=== PATIENT | female | born 1995 | race Caucasian/White ===

== ENCOUNTER 2017-02-04 18:42 | Outpatient (CLI) | payer OTHER ==
[2017-02-04] MEDS ORDERED: LACTATED RINGER'S 500 ML IV ONE (20:30)
[2017-02-04] MEDS ORDERED: NIFEdipine 10 MG CAP PO ONE (20:30)
[2017-02-04 23:08] LABS: ADD UMIC YES; UR ASCORBIC ACID NEGATIVE (NEGATIVE); UR BACTERIA FEW /HPF (NONE SEEN); UR BILIRUBIN (Dip) NEGATIVE (NEGATIVE); UR BLOOD (Dip) 1+ mg/dL (NEGATIVE); UR CLARITY CLEAR (CLEAR); UR COLOR COLORLESS (YELLOW); UR GLUCOSE (Dip) NEGATIVE (NEGATIVE); UR KETONES (Dip) NEGATIVE (NEGATIVE); UR LEUKOCYTE ESTERASE (Dip) 3+ Leu/ul (NEGATIVE); UR NITRITE (Dip) NEGATIVE (NEGATIVE); UR RBC 0 /HPF (0-5); UR SPECIFIC GRAVITY (Dip) 1.002 (1.003-1.030); UR TOTAL PROTEIN (Dip) NEGATIVE (NEGATIVE); UR UROBILINOGEN (Dip) NEGATIVE (NEGATIVE)
--- NOTE | 2017-02-04 23:24 | QN ---
Documentation Comment iup 33+ pt co of ucx vss exam wnl us cl.3.5 a/p iup 33+ false labor dc home MAGALI ASENCIO MD Feb 04, 2017 23:23
[2017-02-04] MEDS ORDERED: NITR-58 PO (23:40)
--- NOTE | 2017-02-05 00:05 | TRIAGE ---
OB Triage Datetime Report Generated by CPN: 02/05/2017 00:04 Datetime: 02/04/2017 23:20 Stage of : OB Triage Monitor Mode: External Pattern: Normal: <= 5 Contractions in 10 Minutes Resting Tone Amber: Relaxed Heart Rate FHR Baseline Rate: 140 Monitor Mode: External US Variability: Moderate 6-25 bpm Accelerations: 15X15 Decelerations: None Category: Category I Pain Assessment Pain Scale: 0 Pain Presence: None/Denies Pain Type: N/A Pain Relief Measures: Comfort Measures Datetime: 02/04/2017 22:15 Stage of : OB Triage Labor Evaluation Frequency: occasional Monitor Mode: External Duration (sec)2399: 40 Pattern: Normal: <= 5 Contractions in 10 Minutes Resting Tone Amber: Relaxed Contraction Comments: uterine irritability noted Heart Rate FHR Baseline Rate: 140 Monitor Mode: External US Variability: Moderate 6-25 bpm Accelerations: 15X15 Decelerations: None Category: Category I Pain Assessment Pain Scale: 0 Pain Presence: None/Denies Pain Type: N/A Pain Relief Measures: Comfort Measures Datetime: 02/04/2017 21:15 Stage of : OB Triage Labor Evaluation Frequency: Irregular Monitor Mode: External Duration (sec)2399: 40-60 Pattern: Normal: <= 5 Contractions in 10 Minutes Resting Tone Amber: Relaxed Heart Rate FHR Baseline Rate: 130 Monitor Mode: External US Variability: Moderate 6-25 bpm Accelerations: 15X15 Decelerations: None Category: Category I Pain Assessment Pain Scale: 0 Pain Presence: None/Denies Pain Type: N/A Pain Relief Measures: Comfort Measures Datetime: 02/04/2017 21:13 Stage of : OB Triage Datetime: 02/04/2017 20:25 Stage of : OB Triage Labor Evaluation Frequency: 1-2 Monitor Mode: External Duration (sec)2399: 40-70 Pattern: Normal: <= 5 Contractions in 10 Minutes Resting Tone Amber: Relaxed Heart Rate FHR Baseline Rate: 130 Monitor Mode: External US Variability: Moderate 6-25 bpm Accelerations: 15X15 Decelerations: None Category: Category I Pain Assessment Pain Scale: 0 Pain Presence: None/Denies Pain Type: N/A Pain Relief Measures: Comfort Measures Datetime: 02/04/2017 20:00 Stage of : OB Triage Datetime: 02/04/2017 19:23 Stage of : OB Triage Assessment Type: Triage Maternal Assessment Level of Consciousness: Fully Conscious DTR's/Clonus: DTRs 2+; No Clonus Headache: Denies Blurred Vision: No Respiratory Effort: Unlabored; Regular Rhythm; Equal Expansion Breath Sounds, Left: Clear and Equal Breath Sounds, Right: Clear and Equal Nausea/Vomiting: Denies RUQ Epigastric Pain: Denies Lower Extremities Edema: None Degree: None Upper Extremities Edema: None Degree: None Facial Edema: None Temperature Route: Oral Fall Risk Assessment History of Falling: (0) No Secondary Diagnosis: (0) No Ambulatory Aid: (0) Bedrest/Nurse Assist IV Therapy: (0) No Gait: (0) Normal/Bedrest/Immobile Mental Status: (0) Oriented to Own Ability Fall Score: 0 Fall Risk Score Definition: No Risk: No action required Pain Assessment Pain Scale: 0 Pain Presence: None/Denies Pain Type: N/A Pain Goal: 0 Pain Relief Measures: Comfort Measures Datetime: 02/04/2017 19:22 EGA: 33.4 Datetime: 02/04/2017 19:20 Time of Arrival: 02/04/2017 18:38 Arrived By: Wheelchair Arrived From: Home Movement: Present Contractions: Denies/Absent Rupture of Membranes: Denies Vaginal Bleeding: None Vaginal Discharge: Denies Recent Sexual Intercouse: Denies Abdominal Trauma: Not Applicable Patient Complaints: Shortness of Breath; Other Additional Patient Complaints: Abdominal pressure. Time Provider Notified: 02/04/2017 20:00 Provider Notified: Initial Plan: JONI MARTINEZ
--- NOTE | 2017-02-05 00:06 | RADRPT ---
PROCEDURE: Limited OB ultrasound CLINICAL INDICATION: Pelvic pressure. TECHNIQUE: Sonographic evaluation to assess the cervical length was performed. Transabdominal and transvaginal imaging of the uterus was performed. COMPARISON: None. FINDINGS: A single live intrauterine in cephalic presentation is identified. The heart rate me asures 161 bpm. The cervix is closed, measuring 3.3 cm in length. There is an placenta, grade 1. IMPRESSION: 1. Closed cervix measuring 3.3 cm. RPTAT: HTAR .Geovanny Tierney MD, MD Date Time Electronically viewed and signed by .Geovanny Tierney MD, on 02/05/2017 00:06 .R/
== END 2017-02-04 23:45 | disposition home or self-care (01) ==
LOC: L-D 18:42 → OBT 18:42
DX: O47.03 False labor before 37 completed weeks of gestation, third trimester (principal); Z3A.33 33 weeks gestation of pregnancy
CPT/HCPCS: 36415; 76817; 81001; 87086; 96360; J7120; Z7500; Z7610; G0463

== ENCOUNTER 2017-03-18 19:46 | Inpatient (IN) | payer OTHER ==
[~2017-03-18] VITALS: Ht 157.5 cm; Wt 56.0 kg
[~2017-03-18 19:46] MED LIST: NITR-58 PO
[2017-03-18 20:17] VITALS: Ht 157.5 cm; Wt 56.0 kg
[2017-03-18 20:18] VITALS: BP 133/67; PULSE 72; RESP 18
[2017-03-18] MEDS ORDERED: PREN1TAB17 PO (20:21)
[2017-03-18] MEDS ORDERED: FERR325C PO (20:22)
[2017-03-18] MEDS ORDERED: IBUPROFEN 600 MG TAB PO PRN (21:30)
[2017-03-18] MEDS ORDERED: LACTATED RINGER'S 1,000 ML IV PRN (21:30)
[2017-03-18] MEDS ORDERED: CARBOPROST 250 MCG INJ IM PRN (21:30)
[2017-03-18] MEDS ORDERED: LIDOCAINE 1% (MPF) 30 ML INJ INJ PRN (21:30)
[2017-03-18] MEDS ORDERED: AMPICILLIN 2 GM/NS (PMX) 100 ML IV ONE (21:30)
[2017-03-18] MEDS ORDERED: MISOPROSTOL 200 MCG TAB PR PRN (21:30)
[2017-03-18] MEDS ORDERED: OXYTOCIN 30 UNITS/LR 500 ML IV PRN (21:30)
[2017-03-18] MEDS ORDERED: OXYTOCIN 30 UNITS/LR 500 ML IV SCH ×2 (21:30)
[2017-03-18] MEDS ORDERED: METHYLERGONOVINE 0.2 MG INJ IM PRN (21:30)
--- NOTE | 2017-03-18 21:33 | HP ---
Date/Time of Note Date/Time of Note DATE: 03/18/17 TIME: 21:32 OB - History Hx of Present Free Text/Dictation iup 39 weeks with poor PNC presents in labor 4cm dilated. : 1 Para: 0 Ultrasounds: No ultrasounds Past Family/Social History * Past Medical, Surgical, Family and Obstetric Histories reviewed from chart. OB Admission Exam Vital Signs Vital Signs Vital Signs Date Time Temp Pulse Resp B/P Pulse Ox O2 Delivery O2 Flow Rate FiO2 03/18/17 20:18 97.9 72 18 133/67 Room Air Physical Exam HEENT: WNL Heart: Rhythm Normal Cervical Dilatation: 4cm Heart Rate: 140's Accelerations: Accelerations Present Decelerations: No Decelerations OB Assessment/Plan Plan: Expectant Management Other plan: iup 39 weeks labor poor care-ob us and amp admit for labor MAGALI ASENCIO MD Mar 18, 2017 21:33
--- NOTE | 2017-03-18 22:09 | RADRPT ---
PROCEDURE: US OB. CLINICAL INDICATION: Labor. TECHNIQUE: Multiple sonographic images of the pelvis were obtained. Transabdominal imaging only w as performed. The images were reviewed on a PACS workstation. COMPARISON: None. FINDINGS: Single live intrauterine is identified. Cardiac activity is present with 137 beats per mi nute. There is a vertex presentation. Measurements: BPD = 38 weeks 2 days. HC = 39 weeks 1 day. AC = 41 weeks 3 days. FL = 37 weeks 0 days. Estimated gestational age of approximately 39 weeks 0 days. Note is made of right sided moderate hydronephrosis. The EFW = 3915 g (8 lb 10 oz) which is at the 80th percentile.. The placenta is anterior. IMPRESSION: Single live intrauterine gestation of approximately 39 weeks 0 days. weight is 3915 g which i s at the 80th percentile. Moderate right hydronephrosis. RPTAT: HMVK .Jovany Garner MD, Date Time Electronically viewed and signed by .Jovany Garner MD, MD on 03/18/2017 22:09 .K/
[2017-03-18] MEDS: LACTATED RINGER'S 1,000 ML IV SCH (22:42)
[2017-03-18 23:09] LABS: ABNORMAL IP MESSAGE 1; BASOPHILS % 0.2 % (0.0-2.0); EOSINOPHILS # 0.1 10^3/ul (0.0-0.5); EOSINOPHILS % 1.1 % (0.0-7.0); HEMATOCRIT 29.9 % (37.0-47.0); HEMOGLOBIN 9.2 g/dl (12.0-16.0); LYMPHOCYTES # 1.9 10^3/ul (0.8-2.9); MEAN CORPUSCULAR HEMOGLOBIN 24.5 pg (29.0-33.0); MEAN CORPUSCULAR HGB CONC 30.8 g/dl (32.0-37.0); MEAN CORPUSCULAR VOLUME 79.5 fl (82.0-101.0); MEAN PLATELET VOLUME 12.8 fl (7.4-10.4); MONOCYTE # 0.6 10^3/ul (0.3-0.9); MONOCYTES % 6.3 % (0.0-11.0); NEUTROPHIL # 6.2 10^3/ul (1.6-7.5); NEUTROPHILS % 70.8 % (39.0-77.0); PLATELET COUNT 193 10^3/UL (140-415); RED BLOOD COUNT 3.76 10^6/ul (4.20-5.40); RED CELL DISTRIBUTION WIDTH 19.1 % (11.5-14.5); WHITE BLOOD COUNT 8.8 10^3/ul (4.8-10.8)
[2017-03-18 23:14] LABS: POSITIVE DIFF @See below
[2017-03-18 23:26] LABS: INR 0.86; PROTIME 11.7 Sec (12.2-14.2); PT RATIO 0.9
[2017-03-18 23:27] LABS: PARTIAL THROMBOPLASTIN TIME 27.9 Sec (25.0-35.0)
[2017-03-19 00:51] LABS: BARBITURATES Negative (NEGATIVE); BENZODIAZEPINES Negative (NEGATIVE); CANNABINOIDS Negative (NEGATIVE); COCAINE Negative (NEGATIVE); OPIATES Negative (NEGATIVE)
[2017-03-19 00:55] LABS: ADD UMIC YES; UR ASCORBIC ACID NEGATIVE (NEGATIVE); UR BACTERIA FEW /HPF (NONE SEEN); UR BILIRUBIN (Dip) NEGATIVE (NEGATIVE); UR BLOOD (Dip) NEGATIVE (NEGATIVE); UR CLARITY SLIGHTLY CLOUDY (CLEAR); UR COLOR YELLOW (YELLOW); UR GLUCOSE (Dip) NEGATIVE (NEGATIVE); UR KETONES (Dip) NEGATIVE (NEGATIVE); UR LEUKOCYTE ESTERASE (Dip) 3+ Leu/ul (NEGATIVE); UR NITRITE (Dip) POSITIVE (NEGATIVE); UR RBC 1 /HPF (0-5); UR SPECIFIC GRAVITY (Dip) 1.012 (1.003-1.030); UR TOTAL PROTEIN (Dip) NEGATIVE (NEGATIVE); UR UROBILINOGEN (Dip) NEGATIVE (NEGATIVE)
--- NOTE | 2017-03-19 01:47 | TRIAGE ---
OB Triage Datetime Report Generated by CPN: 03/19/2017 01:46 Datetime: 03/19/2017 01:34 Pool: Negative Nitrazine: Negative Datetime: 03/19/2017 00:56 Comments: PULSE OX ON, MATERNAL HR TRACING ON Datetime: 03/19/2017 00:55 Interventions: Side to Side Decelerations: Variable Category: Category II Comments: AUDIBLE DROP IN FHT Datetime: 03/19/2017 00:46 Comments: + MOVEMENT PER PT. PT STATES "BABY IS MOVING A LOT" Pain Assessment Pain Scale: 9 Pain Presence: Intermittent Pain Type: Cramping Pain Location: Abdomen Pain Goal: 6 Pain Relief Measures: Comfort Measures Pain Assessment Comments: pt states pain is getting stronger, refuses pain medication for relief a t this time. Datetime: 03/19/2017 00:06 Vaginal Exam Dilatation (cms): 4.0 Effacement (%): 80 Station: -2 Exam By: NNEKA REAVES Vaginal Bleeding: Normal Show Cervix, Consistency: Soft Cervix, Position: Posterior Datetime: 03/18/2017 23:58 Time of Arrival: 03/18/2017 22:20 EGA: 39.4 Arrived By: Stretcher Arrived From: TRIAGE Datetime: 03/18/2017 23:24 Temperature Route: Oral Pain Assessment Pain Scale: 7 Pain Presence: Intermittent Pain Type: Cramping Pain Location: Abdomen Pain Goal: 6 Pain Relief Measures: Comfort Measures Pain Assessment Comments: pt states she desires to have delivery w/o pain medication. options for pain medication explained. pt aware she can request medication for relief when desired Datetime: 03/18/2017 22:56 Stage of : Labor Assessment Type: Admission Assessment Maternal Assessment Level of Consciousness: Fully Conscious DTR's/Clonus: DTRs 2+; No Clonus Headache: Denies Blurred Vision: No Respiratory Effort: Unlabored; Regular Rhythm; Equal Expansion Breath Sounds, Left: Clear and Equal Breath Sounds, Right: Clear and Equal Nausea/Vomiting: Denies RUQ Epigastric Pain: Denies Lower Extremities Edema: None Degree: None Upper Extremities Edema: None Degree: None Facial Edema: None Fall Risk Assessment History of Falling: (0) No Secondary Diagnosis: (0) No Ambulatory Aid: (0) Bedrest/Nurse Assist IV Therapy: (20) Yes Gait: (0) Normal/Bedrest/Immobile Mental Status: (0) Oriented to Own Ability Fall Score: 20 Fall Risk Score Definition: No Risk: No action required Datetime: 03/18/2017 22:54 Time of Arrival: 03/18/2017 19:40 EGA: 39.4 Arrived By: Wheelchair Arrived From: Home Chief Complaint: CONTRACTIONS Movement: Present Contractions: Regular Time Contractions Began: 03/18/2017 16:00 Rupture of Membranes: Denies Vaginal Bleeding: None Vaginal Discharge: Denies Recent Sexual Intercouse: Denies Abdominal Trauma: Not Applicable Patient Complaints: Contractions Additional Patient Complaints: PATIENT HAS NOT SEEN OB FOR 3 MONTHS DUE TO INSURANCE ISSUES Time Provider Notified: 03/18/2017 21:00 Provider Notified: SHAMSIAN Initial Plan: SVE Datetime: 03/18/2017 22:00 Labor Evaluation Frequency: 1.5-3.5 Monitor Mode: External Duration (sec)2399: 50-90 Quality: Moderate Pattern: Normal: <= 5 Contractions in 10 Minutes Resting Tone [place]: Relaxed Heart Rate FHR Baseline Rate: 135 Monitor Mode: External US Variability: Moderate 6-25 bpm Accelerations: 15X15 Decelerations: None Category: Category I Datetime: 03/18/2017 21:00 Labor Evaluation Frequency: 1.5-4 Monitor Mode: External Duration (sec)2399: 70-90 Quality: Moderate Pattern: Normal: <= 5 Contractions in 10 Minutes Resting Tone [place]: Relaxed Heart Rate FHR Baseline Rate: 135 Monitor Mode: External US Variability: Moderate 6-25 bpm Accelerations: 15X15 Decelerations: None Category: Category I Datetime: 03/18/2017 20:48 Vaginal Exam Dilatation (cms): 4.0 Effacement (%): 80 Station: -2 Exam By: be Vaginal Bleeding: None Cervix, Consistency: Soft Cervix, Position: Midposition Presentation 'A': Cephalic Datetime: 03/18/2017 20:05 Assessment Type: Admission Assessment Maternal Assessment Level of Consciousness: Fully Conscious DTR's/Clonus: DTRs 2+; No Clonus Headache: Denies Blurred Vision: No Respiratory Effort: Unlabored; Regular Rhythm; Equal Expansion Breath Sounds, Left: Clear and Equal Breath Sounds, Right: Clear and Equal Nausea/Vomiting: Denies RUQ Epigastric Pain: Denies Lower Extremities Edema: None Degree: None Upper Extremities Edema: None Degree: None Facial Edema: None Fall Risk Assessment History of Falling: (0) No Secondary Diagnosis: (0) No Ambulatory Aid: (0) Bedrest/Nurse Assist IV Therapy: (20) Yes Gait: (0) Normal/Bedrest/Immobile Mental Status: (0) Oriented to Own Ability Fall Score: 20 Fall Risk Score Definition: No Risk: No action required Datetime: 02/04/2017 19:23 Fall Score: 0 Fall Risk Score Definition: No Risk: No action required Datetime: 02/04/2017 19:22 EGA: 33.4
[2017-03-19] MEDS: AMPICILLIN 1 GM/NS (PMX) 50 ML IV SCH ×4 (02:40→14:00)
[2017-03-19] MEDS: LACTATED RINGER'S 1,000 ML IV SCH ×5 (05:25→17:41)
[2017-03-19] MEDS ORDERED: CITRIC ACID/NA CITRATE 30 ML CUP ONE (06:12)
[2017-03-19] MEDS ORDERED: CITRIC ACID/NA CITRATE 30 ML CUP PO ONE (06:30)
[2017-03-19] MEDS ORDERED: OXYTOCIN 30 UNITS/LR 500 ML BAG IV ONE (07:00)
[2017-03-19] MEDS: BUTORPHANOL 2 MG INJ IV PRN ×2 (07:44→12:02)
[2017-03-19] MEDS ORDERED: MINERAL OIL LIGHT 10 ML VIAL TOP ONE (09:00)
[2017-03-19] MEDS ORDERED: CEFAZOLIN 2 GM/50 ML (PMX) 50 ML IV SCH (16:00)
[2017-03-19] MEDS ORDERED: GLYCOPYRROLATE 0.4 MG INJ ONE (16:20)
[2017-03-19] MEDS ORDERED: PROPOFOL 20 ML ONE (16:20)
[2017-03-19] MEDS ORDERED: NEOSTIGMINE 3 MG/3 ML SYRINGE ONE (16:20)
[2017-03-19] MEDS ORDERED: SUCCINYLCHOLINE CHLORIDE 100 MG/5 ML SYG IV ONE (16:20)
[2017-03-19] MEDS ORDERED: MEPERIDINE 100 MG INJ ONE (16:20)
[2017-03-19] MEDS ORDERED: ROCURONIUM 50 MG INJ ONE (16:20)
[2017-03-19] MEDS ORDERED: LIDOCAINE 2% (SDV) 5 ML INJ ONE (16:20)
[2017-03-19] MEDS ORDERED: METOCLOPRAMIDE 10 MG INJ ONE (16:36)
[2017-03-19] MEDS ORDERED: OXYTOCIN 10 UNIT INJ ONE (16:36)
[2017-03-19] MEDS ORDERED: ONDANSETRON 4 MG INJ ONE (16:36)
[2017-03-19] MEDS ORDERED: NALOXONE (0.4 MG/ML) INJ IV PRN (17:30)
[2017-03-19] MEDS ORDERED: ONDANSETRON 4 MG INJ IV PRN (17:30)
[2017-03-19] MEDS ORDERED: DIPHENHYDRAMINE 50 MG INJ IV PRN (17:30)
--- NOTE | 2017-03-19 17:33 | OPR ---
Operative Report Planned Procedure Procedure date Mar 19, 2017 Procedure(s) Primary section Performed by: MARIAN GALLEGOS MD Assisting provider: ARUN INFANTE MD Anesthesiologist: GEORGIANA WHITLEY MD Pre-procedure diagnosis IUP at 39 weeks 5 days. Failure to progress, arrest of descent. Anesthesia Type: general Anesthesia type other Due to pt's h/o spina bifida. Procedure Description Under satisfactory general anesthesia, the patient was prepped and draped and placed in a supine position, tilted to the left. Pfannenstiel incision was made , carried through the subcutaneous tissue. Bleeders brought under control with electrocautery. Fascia incised to the length of the incision. Rectus muscles from the fascia, divided midline. Peritoneum exposed, entered through a transverse incision. Exploration of abdomen revealed gravid uterus. Bladder flap was developed. Transverse incision was made in the lower segment of the uterus with a knife and entered with a pat clamp. Amniotic sac ruptured. Clear amniotic fluid noted. Nasal oropharyngeal suction was performed. The cord was doubly clamped and cut after 30 seconds. The baby was brought to the team for immediate attention. The placenta was delivered manually intact. Uterine cavity was cleaned with wet sponge. Uterus closed in 2 layers using #1 chromic suture in continuous fashion with excellent hemostasis. Peritoneal cavity irrigated with warm saline. Sponge, needle and instrument count reported to be correct. Peritoneum was closed with 2-0 chromic and the rectus muscles were brought back together with the same suture. Fascia closed with 0-Vicryl suture, subcutaneous tissue closed with 0 Chromic and skin closed with 3-0 Monocryl in a subcuticular stitch. A pressure dressing was applied. Estimated blood loss 500 mL. Urine bag contained clear urine. Pt was awakened from general anesthesia and transferred to the recovery room in excellent condition. Post-Procedure Post-procedure diagnosis Same, s/p delivery of a viable baby girl weighing 3385 grams, or 7# 7oz, with Apgars of 9/9. Findings: Live Baby girl, Apgars 9 and 9, weight 3385 grams. Specimen removed: No Complications: None Pt Condition post procedure: stable Disposition: other (L and D recovery status) Physician Certification I, the undersigned physician, hereby certify that I have discussed the procedure described in this consent form with this patient (or the patient's legal sales utility representative), including: * The risk and benefits of the procedure; * Any adverse reactions that may reasonably be expected to occur; * Any alternative efficacious methods of treatment which may be medically viable ; * The potential problems that may occur during recuperation; * Potential for blood transfusion and associated risks/benefits; and * Any research or economic interest I may have regarding this treatment. I further certify that the patient/legally responsible person was encouraged to ask question and that all questions were answered. MARIAN GALLEGOS MD Mar 19, 2017 17:31
[2017-03-19] MEDS: morphine 1 MG/ML 30 ML (PCA) IV SCH (17:55)
[2017-03-19] MEDS ORDERED: METHYLERGONOVINE 0.2 MG INJ IM PRN (18:00)
[2017-03-19] MEDS ORDERED: OXYTOCIN 30 UNITS/LR 500 ML IV PRN (18:00)
[2017-03-19] MEDS ORDERED: OXYCODONE/ACETAMINOPHEN (5/325) TAB PO PRN ×2 (18:00)
[2017-03-19] MEDS ORDERED: LANOLIN 7 GM TUBE TOP PRN (18:00)
[2017-03-19] MEDS ORDERED: CARBOPROST 250 MCG INJ IM PRN (18:00)
[2017-03-19] MEDS ORDERED: IBUPROFEN 600 MG TAB PO SCH (18:00)
[2017-03-19] MEDS ORDERED: MISOPROSTOL 200 MCG TAB PR PRN (18:00)
[2017-03-19] MEDS: OXYTOCIN 30 UNITS/LR 500 ML IV SCH ×2 (18:36→20:11)
[2017-03-19 21:00] VITALS: BP 144/84; PULSE 86; RESP 20
[2017-03-19 21:30] VITALS: BP 136/75; PULSE 89; RESP 18
[2017-03-19 22:00] VITALS: BP 125/77; PULSE 84; RESP 20
[2017-03-19 23:00] VITALS: BP 125/79; PULSE 84; RESP 20
[2017-03-20] VITALS (7 sets, daily range): BP systolic 122–146; BP diastolic 65–82; PULSE 90–111; RESP 18–20
[2017-03-20] MEDS: OXYTOCIN 30 UNITS/LR 500 ML IV SCH ×2 (00:51→05:55)
[2017-03-20] MEDS: LACTATED RINGER'S 1,000 ML IV SCH ×3 (01:41→17:41)
[2017-03-20 07:43] LABS: BASOPHILS % 0.2 % (0.0-2.0); EOSINOPHILS # 0.1 10^3/ul (0.0-0.5); EOSINOPHILS % 0.3 % (0.0-7.0); HEMOGLOBIN 7.4 g/dl (12.0-16.0); LYMPHOCYTES # 1.6 10^3/ul (0.8-2.9); LYMPHOCYTES % 9.3 % (15.0-51.0); MEAN CORPUSCULAR HEMOGLOBIN 23.4 pg (29.0-33.0); MEAN CORPUSCULAR HGB CONC 29.6 g/dl (32.0-37.0); MEAN CORPUSCULAR VOLUME 79.1 fl (82.0-101.0); MEAN PLATELET VOLUME 12.5 fl (7.4-10.4); MONOCYTE # 0.9 10^3/ul (0.3-0.9); MONOCYTES % 5.2 % (0.0-11.0); NEUTROPHIL # 14.3 10^3/ul (1.6-7.5); NEUTROPHILS % 84.4 % (39.0-77.0); PLATELET COUNT 132 10^3/UL (140-415); RED BLOOD COUNT 3.16 10^6/ul (4.20-5.40); RED CELL DISTRIBUTION WIDTH 19.1 % (11.5-14.5); WHITE BLOOD COUNT 16.9 10^3/ul (4.8-10.8)
[2017-03-20] MEDS: morphine 1 MG/ML 30 ML (PCA) IV SCH (07:51)
[2017-03-20] MEDS: KETOROLAC 30 MG INJ IV PRN ×2 (08:12→15:18)
--- NOTE | 2017-03-20 13:43 | QN ---
Documentation Comment POD#1 is stable afebrile tolerates diet No VB +flatus Adequate urine VS stable Gen NAD Abd Soft NT ND Dressing to be removed Genitalia No blood at perinium --->Ambulation --->CBC(mildly tachy) LUANNE SALAS M.D. Mar 20, 2017 13:43
[2017-03-20 15:33] LABS: ABNORMAL IP MESSAGE 1; HEMATOCRIT 23.4 % (37.0-47.0); MEAN CORPUSCULAR HEMOGLOBIN 23.5 pg (29.0-33.0); MEAN CORPUSCULAR HGB CONC 29.5 g/dl (32.0-37.0); MEAN CORPUSCULAR VOLUME 79.6 fl (82.0-101.0); MEAN PLATELET VOLUME 12.5 fl (7.4-10.4); PLATELET COUNT 122 10^3/UL (140-415); RED BLOOD COUNT 2.94 10^6/ul (4.20-5.40); RED CELL DISTRIBUTION WIDTH 19.4 % (11.5-14.5); WHITE BLOOD COUNT 13.7 10^3/ul (4.8-10.8)
[2017-03-20 15:37] LABS: POSITIVE DIFF @See below
[2017-03-20 15:40] LABS: HEMOGLOBIN 6.9 g/dl (12.0-16.0)
[2017-03-20 16:02] LABS: ANISOCYTOSIS 1+ (0-0); EOSINOPHILS % (M) 2 % (0-7); MICROCYTOSIS 2+ (0-0); MONOCYTES % (M) 1 % (0-11); PLATELET ESTIMATE NORMAL; POIKILOCYTOSIS 1+ (0-0); POLYCHROMASIA 1+ (0-0)
[2017-03-20] MEDS: FERROUS SULFATE (EC) 325 MG TAB PO SCH (21:13)
[2017-03-20] MEDS: OXYCODONE/ACETAMINOPHEN (5/325) TAB PO PRN (21:14)
[2017-03-20 22:33] LABS: WHITE BLOOD COUNT 13.7 10^3/ul (4.8-10.8)
[2017-03-20 22:34] LABS: BASOPHILS % 0.1 % (0.0-2.0); EOSINOPHILS # 0.1 10^3/ul (0.0-0.5); EOSINOPHILS % 0.4 % (0.0-7.0); HEMATOCRIT 23.7 % (37.0-47.0); HEMOGLOBIN 7.1 g/dl (12.0-16.0); LYMPHOCYTES # 1.5 10^3/ul (0.8-2.9); LYMPHOCYTES % 10.8 % (15.0-51.0); MEAN CORPUSCULAR HEMOGLOBIN 23.7 pg (29.0-33.0); MEAN CORPUSCULAR VOLUME 79.3 fl (82.0-101.0); MEAN PLATELET VOLUME 12.9 fl (7.4-10.4); MONOCYTE # 0.7 10^3/ul (0.3-0.9); MONOCYTES % 5.2 % (0.0-11.0); NEUTROPHIL # 11.4 10^3/ul (1.6-7.5); NEUTROPHILS % 83.1 % (39.0-77.0); PLATELET COUNT 157 10^3/UL (140-415); RED BLOOD COUNT 2.99 10^6/ul (4.20-5.40); RED CELL DISTRIBUTION WIDTH 19.2 % (11.5-14.5)
[2017-03-21] MEDS: IBUPROFEN 600 MG TAB PO SCH ×5 (00:07→23:49)
[2017-03-21 03:55] VITALS: BP 115/63; PULSE 86; RESP 17
[2017-03-21 08:15] VITALS: BP 117/62; PULSE 84; RESP 18
[2017-03-21] MEDS: FERROUS SULFATE (EC) 325 MG TAB PO SCH ×3 (11:14→21:12)
--- NOTE | 2017-03-21 11:32 | QN ---
Documentation Comment pt doing well mild weakness no sob vss exam wnl CDI a/p pod 2 anemia-stable pt refused blood transfusion. rpt hh in am MAGALI ASENCIO MD Mar 21, 2017 11:32
[2017-03-21 16:00] VITALS: BP 119/73; PULSE 70; RESP 17
[2017-03-21] MEDS: OXYCODONE/ACETAMINOPHEN (5/325) TAB PO PRN (17:03)
[2017-03-21 19:45] VITALS: BP 134/78; PULSE 72; RESP 18
[2017-03-22] MEDS: OXYCODONE/ACETAMINOPHEN (5/325) TAB PO PRN ×2 (01:00→13:12)
[2017-03-22] MEDS: IBUPROFEN 600 MG TAB PO SCH ×2 (05:36→13:13)
[2017-03-22 05:42] VITALS: BP 123/71; PULSE 73; RESP 18
[2017-03-22 08:00] VITALS: BP 124/58; PULSE 71; RESP 17
[2017-03-22] MEDS ORDERED: DIPHTH/TET/ACEL PERTUSS (ADULT) 0.5 ML VIAL IM* ONE (09:00)
[2017-03-22] MEDS: FERROUS SULFATE (EC) 325 MG TAB PO SCH ×2 (10:26→13:11)
[2017-03-22 10:47] LABS: BASOPHILS % 0.3 % (0.0-2.0); EOSINOPHILS # 0.2 10^3/ul (0.0-0.5); EOSINOPHILS % 2.4 % (0.0-7.0); HEMATOCRIT 23.5 % (37.0-47.0); LYMPHOCYTES # 1.5 10^3/ul (0.8-2.9); LYMPHOCYTES % 19.1 % (15.0-51.0); MEAN CORPUSCULAR HEMOGLOBIN 24.1 pg (29.0-33.0); MEAN CORPUSCULAR HGB CONC 29.8 g/dl (32.0-37.0); MEAN CORPUSCULAR VOLUME 80.8 fl (82.0-101.0); MEAN PLATELET VOLUME 11.5 fl (7.4-10.4); MONOCYTE # 0.4 10^3/ul (0.3-0.9); MONOCYTES % 5.3 % (0.0-11.0); PLATELET COUNT 164 10^3/UL (140-415); RED BLOOD COUNT 2.91 10^6/ul (4.20-5.40); RED CELL DISTRIBUTION WIDTH 18.9 % (11.5-14.5); WHITE BLOOD COUNT 7.9 10^3/ul (4.8-10.8)
--- NOTE | 2017-03-22 11:59 | QN ---
Documentation Comment POD#3 is stable afebrile tolerates diet No VB +BM+voids VS stable Gen NAD Abd Soft NT ND Incision intact Genitalia No blood at perinium -->discharge home --->follow up with her provider in 2 weeks LUANNE SALAS M.D. Mar 22, 2017 11:59
--- NOTE | 2017-03-22 12:02 | DS ---
Date/Time of Note Date/Time of Note DATE: 03/22/17 TIME: 12:01 Discharge Summary Admission/Discharge Info Admit Date/Time Mar 18, 2017 at 21:20 Discharge Date/Time Mar Discharge Diagnosis post c/section Patient Condition: Stable Procedures primary c/section Hospital Course uneventful Home Meds Reported Medications Ferrous Sulfate (Iron) 325 Mg Capsule.er, 325 MG PO DAILY, CAP 03/18/17 Vit-Iron Fumarate-FA ( Tablet) 1 Each Tablet, 1 TAB PO DAILY, TAB 03/18/17 Nitrofurantoin Monohyd Macrocr* (Macrobid*) 100 Mg Capsr, 100 MG PO BID, CAP 02/04/17 Primary Care Provider Caroline Blackwood Pending Labs Laboratory Tests Test 03/22/17 10:28 White Blood Count 7.910^3/ul (4.8-10.8) Red Blood Count 2.9110^6/ul (4.20-5.40) Hemoglobin 7.0g/dl (12.0-16.0) Hematocrit 23.5% (37.0-47.0) Mean Corpuscular Volume 80.8fl (82.0-101.0) Mean Corpuscular Hemoglobin 24.1pg (29.0-33.0) Mean Corpuscular Hemoglobin Concent 29.8g/dl (32.0-37.0) Red Cell Distribution Width 18.9% (11.5-14.5) Platelet Count 15513^3/UL (140-415) Mean Platelet Volume 11.5fl (7.4-10.4) Neutrophils % 72.0% (39.0-77.0) Lymphocytes % 19.1% (15.0-51.0) Monocytes % 5.3% (0.0-11.0) Eosinophils % 2.4% (0.0-7.0) Basophils % 0.3% (0.0-2.0) Nucleated Red Blood Cells % 0.0/100WBC (0.0-0.0) Neutrophils # (Manual) 5.710^3/ul (1.7-7.5) Lymphocytes # 1.510^3/ul (0.8-2.9) Monocytes # 0.410^3/ul (0.3-0.9) Eosinophils # 0.210^3/ul (0.0-0.5) Basophils # 0.010^3/ul (0.0-0.1) Nucleated Red Blood Cells # 0.010^3/ul (0.0-0.0) LUANNE SALAS M.D. Mar 22, 2017 12:01
[2017-03-22 13:08] LABS: RUBELLA ANTIBODY - IGG 4.46 index
[2017-03-22] MEDS ORDERED: IBUPROFEN 600 MG TAB PO SCH (18:00)
== END 2017-03-22 17:30 | disposition home or self-care (01) | DRG 766 ==
LOC: OBT 19:46 → L-D 19:49 → OBT 21:28 → L-D 22:29 → PP1 03-19 20:53
PROC: 10D00Z1 Extraction of Products of Conception, Low, Open Approach (ICD-10-PCS; principal; 2017-03-19 16:00)
DX: O75.89 Other specified complications of labor and delivery (principal); Q05.9 Spina bifida, unspecified; Z37.0 Single live birth; Z3A.39 39 weeks gestation of pregnancy; O62.0 Primary inadequate contractions; O90.81 Anemia of the puerperium; O99.344 Other mental disorders complicating childbirth; F32.9 Major depressive disorder, single episode, unspecified
CPT/HCPCS: 76815; 80307; 81001; 85025; 85610; 85730; 86592; 86703; 86762; 86850; 86900; 86901; 86920; 87340; 90715; 99464; A4310; G0463; J0290; J0595; J0690; J1885; J2175; J2270; J2405; J2590; J2710; J2765; J7120; J7999

== ENCOUNTER 2018-06-29 14:27 | Emergency (ER) | END 2018-06-29 17:18 | disposition home or self-care (01) ==

== ENCOUNTER 2018-12-05 16:23 | Emergency (ER) | payer OTHER ==
[~2018-12-05] VITALS: Ht 162.6 cm; Wt 52.8 kg
[~2018-12-05 16:23] MED LIST changes: +CIPR500T4 PO; +HYDR-3980 PO; +IBUP800T48 PO; -NITR-58 PO; +ONDA4TAB14 PO
[2018-12-05 16:52] VITALS: BP 138/73; PULSE 75; RESP 18; Ht 162.6 cm; Wt 52.8 kg
[2018-12-05] MEDS ORDERED: ACET-141 PO (17:16)
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
== END 2018-12-05 17:21 | disposition home or self-care (01) ==
LOC: E/R 16:23
DX: O99.89 Other specified diseases and conditions complicating pregnancy, childbirth and the puerperium (principal); M54.2 Cervicalgia; Z3A.01 Less than 8 weeks gestation of pregnancy; Z91.040 Latex allergy status
CPT/HCPCS: 99282